=== PATIENT | female | born 1960 | race Two or more races ===

== ENCOUNTER 2023-03-15 03:26 | Inpatient (IN) | payer OTHER ==
[~2023-03-15] VITALS: Ht 160 cm; Wt 81.2 kg
== END 2023-03-29 14:57 | disposition home or self-care (01) | DRG 419 ==
LOC: ER 03:26 → MEDI 21:57 → SEC-K 21:57 → MEDJ 03-16 02:00 → MEDI 03-16 03:10
PROVIDERS: Emergency Medicine; Student in an Organized Health Care Education/Training Program; Surgery; ADMIT Specialist; ATTEND Specialist
PROC: BW21YZZ Computerized Tomography (CT Scan) of Abdomen and Pelvis using Other Contrast (ICD-10-PCS; 2023-03-15)
PROC: 0WQF4ZZ Repair Abdominal Wall, Percutaneous Endoscopic Approach (ICD-10-PCS; 2023-03-16)
PROC: BW40ZZZ Ultrasonography of Abdomen (ICD-10-PCS; 2023-03-16)
PROC: 0FT44ZZ Resection of Gallbladder, Percutaneous Endoscopic Approach (ICD-10-PCS; principal; 2023-03-16 17:00)
PROC: CF1C1ZZ Planar Nuclear Medicine Imaging of Hepatobiliary System, All using Technetium 99m (Tc-99m) (ICD-10-PCS; 2023-03-23)
PROC: BF37YZZ Magnetic Resonance Imaging (MRI) of Pancreas using Other Contrast (ICD-10-PCS; 2023-03-25)
PROC: 0F798DZ Dilation of Common Bile Duct with Intraluminal Device, Via Natural or Artificial Opening Endoscopic (ICD-10-PCS; 2023-03-27)
PROC: 0FPD8DZ Removal of Intraluminal Device from Pancreatic Duct, Via Natural or Artificial Opening Endoscopic (ICD-10-PCS; 2023-03-27)
DX: K80.10 Calculus of gallbladder with chronic cholecystitis without obstruction (principal); K82.A1 Gangrene of gallbladder in cholecystitis; D72.829 Elevated white blood cell count, unspecified; K83.9 Disease of biliary tract, unspecified

== ENCOUNTER → 2024-09-04 | Emergency (ER) | payer OTHER ==
[~2024-09-04] VITALS: Ht 160 cm; Wt 74.8 kg
[~2024-09-04] MED LIST: HYOSCYAMINE SULFATE 0.125 MG TAB.SUBL ONE; HYOSCYAMINE SULFATE 0.125 MG TAB.SUBL SL ONE; ONDANSETRON HCL 2 MG/ML VIAL ONE
[2024-09-04 16:58] LABS: HEMATOCRIT 44.6 % (36.0-45.00); HEMOGLOBIN 14.5 g/dL (12.0-15.00); MEAN CELL VOLUME 70.3 fL (80.00-100.00); MEAN CORPUSCULAR HEMOGLOBIN 22.9 pg (27.00-32.0); MEAN CORPUSCULAR HGB CONC 32.5 g/dl (32.0-36.0); PLATELET COUNT 290 K/uL (150-450); RED BLOOD COUNT 6.35 M/uL (4.00-6.00); RED CELL DISTRIBUTION WIDTH 16.8 % (11.5-14.5)
== END | disposition home or self-care (01) ==
LOC: ER 15:49
DX: R10.13 Epigastric pain (principal)
CPT/HCPCS: 36415; 74022; 96365; 96366; 99283; J0456; J3490